=== PATIENT | male | born 1955 | race Two or more races ===

== ENCOUNTER 2017-11-15 13:41 | Emergency (ER) | payer SELFPAY ==
--- NOTE | 2017-11-15 14:58 | EDM.PDOC ---
ED HPI GENERAL MEDICAL PROBLEM - General Chief Complaint: General Stated Complaint: PAIN IN RIB AREA Time Seen by Provider: 11/15/17 13:43 Source of Information: Reports: Patient, RN, RN Notes Reviewed History Limitations: Reports: No Limitations - History of Present Illness INITIAL COMMENTS - FREE TEXT/NARRATIVE: Patient presents to the ED at [facility] complaining of left anterior rib pain after he slipped and fell on the ice. Patient states the fall happened about 1 1/2 hours ago. No trouble breathing. No airway compromise. Patient states it does hurt to take in a deep breath. No previous injury or trauma. Patient is able to ambulate without any problems. Onset: Today Onset Date: 11/15/17 Duration: Waxing/Waning Location: Reports: Chest (anterior chest wall) Quality: Reports: Sharp Improves with: Reports: Rest Worsens with: Reports: Breathing Context: Reports: Trauma (fall on ice) Associated Symptoms: Reports: No Other Symptoms Treatments RECREATION SPECIALIST: Reports: Other (see below) (none) - Related Data Allergies Allergy/AdvReac Type Severity Reaction Status Date / Time Penicillins Allergy Rash Verified 11/15/17 14:48 Home Meds: Home Meds . [Unable to Verify Home Med List] 11/15/17 [History] ED ROS GENERAL - Review of Systems Review Of Systems: See Below Constitutional: Denies: Fever, Chills, Weakness Respiratory: Reports: Pleuritic Chest Pain. Denies: Shortness of Breath, Cough Cardiovascular: Denies: Chest Pain, Palpitations Skin: Reports: No Symptoms Neurological: Reports: No Symptoms. Denies: Dizziness, Headache ED EXAM, GENERAL - Physical Exam Exam: See Below Exam Limited By: No Limitations General Appearance: Alert, No Apparent Distress Head: Atraumatic, Normocephalic Neck: Supple Respiratory/Chest: No Respiratory Distress, Lungs Clear, Normal Breath Sounds, Other (tender to palpation of the left anterior chest wall underneath left nipple area) Cardiovascular: Normal Peripheral Pulses, Regular Rate, Rhythm Neurological: Alert, Oriented Skin Exam: Warm, Dry, Intact, Normal Color, No Rash. No: Wound/Incision Course - Orders/Labs/Meds Orders: Active Orders 24 hr Category Date Time Status Ribs 2V w Chest Lt [CR] Stat Exams 11/15/17 14:26 Taken - Radiology Interpretation Free Text/Narrative:: Rib with chest: No acute rib fractures noted on plain film Departure - Departure Time of Disposition: 14:58 Disposition: Home, Self-Care 01 Condition: Good Clinical Impression: Contusion of rib on left side Qualifiers: Encounter type: initial encounter Qualified Code(s): S20.212A - Contusion of left front wall of thorax, initial encounter Fall due to ice or snow Qualifiers: Encounter type: initial encounter Qualified Code(s): W00.9XXA - Unspecified fall due to ice and snow, initial encounter - Discharge Information Instructions: Chest Wall Pain, [id number], Chest Contusion Additional Instructions: 1. Stay well hydrated and rest 2. May alternate Tylenol/Advil as needed 3. Use heating pad to painful areas 4. Take several deep breaths every hour 5. See your Primary as symptoms arrant 6. Call with any questions/concerns - Problem List Review Problem List Initiated/Reviewed/Updated: Yes - My Orders Last 24 Hours: My Active Orders 11/15/17 14:26 Ribs 2V w Chest Lt [CR] Stat - Assessment/Plan Last 24 Hours: My Active Orders 11/15/17 14:26 Ribs 2V w Chest Lt [CR] Stat
== END 2017-11-15 15:10 | disposition home or self-care (01) ==
LOC: VM.ED 13:41
DX: S20.212A Contusion of left front wall of thorax, initial encounter (principal); Z88.0 Allergy status to penicillin; W00.0XXA Fall on same level due to ice and snow, initial encounter
CPT/HCPCS: 71101-LT; 99283; 99283-GF